=== PATIENT | male | born 1950 | race Caucasian/White ===

== ENCOUNTER → 2017-12-03 12:50 | Outpatient (CLI) | payer MEDICARE, SELFPAY ==
--- NOTE | 2017-12-03 12:55 | ECHOD_ITS ---
Reason For Study: Murmur Procedure This was a 2D Doppler, Color Flow transthoracic echocardiogram. Exam performed in department. Left Ventricle Normal size and thickness. The estimated ejection fraction is 60 %. No regional wall motion abnormalities noted. Right Ventricle Mildly dilated right ventricle. Normal systolic function. Atria The left atrium is severely enlarged. Normal right atrium. Normal atrial septum. Probable patent foramen ovale. Probable left to right doppler flow across septum. Mitral Valve Mild diffuse mitral valve thickening. Equivocal mitral valve prolapse. Mild (1+) mitral valve insufficiency. Tricuspid Valve Normal tricuspid valve. Trivial tricuspid valve insufficiency. Right ventricular systolic pressure estimated to be 29 mmHg. Aortic Valve Trisinus/trileaflet aortic valve. Mild diffuse aortic valve thickening. There is no aortic stenosis. Pulmonic Valve Normal pulmonic valve. Great Vessels Normal aortic root. Normal arch. Normal inferior vena cava. Inferior vena cava collapse with sniff. Pericardium/Pleural No pericardial effusion. MMode/2D Measurements & Calculations LVIDd: 4.7 cm IVSd: 0.91 cm Ao root diam: 3.7 cm LVIDs: 3.3 cm LVPWd: 0.88 cm RVDd: 4.0 cm FS: 29.3 % LAV(MOD-bp): 117.1 ml EDV(MOD-sp4): 77.4 ml SV(MOD-sp4): 43.7 ml LAV(MOD-bp) Indexed: 54.7 ml/m2 ESV(MOD-sp4): 33.7 ml LAV(MOD-sp2): 107.8 ml EF(MOD-sp4): 56.5 % LAV(MOD-sp4): 110.7 ml LA A4 area: 32.0 cm2 RA A4 area: 19.7 cm2 Doppler Measurements & Calculations MV E max alayna: 115.8 cm/sec Ao V2 max: 97.8 cm/sec LV V1 max: 89.1 cm/sec Ao max P.8 mmHg LV V1 max P.2 mmHg Ao V2 mean: 74.5 cm/sec Ao mean P.4 mmHg Ao V2 VTI: 20.7 cm PA V2 max: 80.8 cm/sec TR max alayna: 184.6 cm/sec TR max P.6 mmHg Interpretation Summary The estimated ejection fraction is 60 %. Mildly dilated right ventricle. The left atrium is severely enlarged. Equivocal mitral valve prolapse. Mild (1+) mitral valve insufficiency. Trivial tricuspid valve insufficiency. Right ventricular systolic pressure estimated to be 29 mmHg. Probable patent foramen ovale. Probable left to right doppler flow across septum. Pt appears to be in atrial fibrillation. In comparison to echo report dated 02/10/2014, no appreciable changes noted. Ordering Physician: Will Palm Referring Physician: Sebastien Holt Performed By: Vanesa Mabry RDCS, RVT
== END ==
PROVIDERS: Family Provider Family Medicine; PCP Family Medicine; Visit Provider Internal Medicine Cardiovascular Disease
DX: I50.32 Chronic diastolic (congestive) heart failure (principal)
CPT/HCPCS: 93306

== ENCOUNTER → 2017-12-13 10:36 | Outpatient (CLI) | payer MEDICARE, SELFPAY ==
[2017-12-13 12:47] LABS: Anion Gap 10 (5-15); BUN 16 mg/dL (7-18); BUN/Creat Ratio 7.7 RATIO (10-20); Chloride 108 mmol/L (98-107); Cholesterol 199 mg/dL (200); Creatinine, Serum 2.07 mg/dL (0.70-1.30); EST Glomerular Filtration Rate 34 mL/min (>60); Est Glom Filt Rate - Afr Amer 42 mL/min (>60); Glucose 97 mg/dL (74-106); High Density Lipoprotein 33 mg/dL; Potassium 3.9 mmol/L (3.5-5.1); Sodium Level 144 mmol/L (136-145); Thyroid Stim Hormone (TSH) 2.07 uIU/mL (0.358-3.74); Triglycerides 193 mg/dL; Very Low Density Lipoprotein 39 mg/dL (5-40)
[2017-12-14 08:16] LABS: Vitamin D,25 Hydroxy 40.3 ng/mL (29.95-100.01)
== END ==
PROVIDERS: Family Provider Family Medicine; PCP Family Medicine; Visit Provider Family Medicine
DX: Z00.00 Encounter for general adult medical examination without abnormal findings (principal); Z12.5 Encounter for screening for malignant neoplasm of prostate; I48.91 Unspecified atrial fibrillation; I10 Essential (primary) hypertension; N19 Unspecified kidney failure; N40.0 Benign prostatic hyperplasia without lower urinary tract symptoms; D64.9 Anemia, unspecified; Z86.73 Personal history of transient ischemic attack (TIA), and cerebral infarction without residual deficits
CPT/HCPCS: 36415; 80048; 80061; 82306; 84153; 84443; G0103

== ENCOUNTER 2018-01-12 17:41 | Emergency (ER) | payer MEDICARE, SELFPAY ==
[2018-01-12 17:42] VITALS: BP 125/83; PULSE 80; RESP 18; TEMP 36.1; O2SAT 97; BMI 32.5
[2018-01-12 19:51] LABS: Absolute Lymphocyte Count 1.09 X10^3/ul (0.83-4.51); Absolute Neutrophil Count 4.2 X10^3/uL (2.0-7.7); Basophil# 0.02 X10^3/uL; Basophil% 0.3 % (0-1); Eosinophils% 1.7 % (0-5); Hematocrit 44.1 % (40-54); Hemoglobin 14.7 g/dl (13.0-16.5); Lymphocyte # 1.09 X10^3/ul (4.0); Lymphocyte % 18.6 % (19-41); Mean Corp Hgb Conc 33.3 g/gl (32-36); Mean Corpuscular Hgb 31.3 pg (27.0-32.0); Mean Corpuscular Volume 93.8 fL (80-94); Mean Platelet Vol. 11.1 fl (6.2-12.0); Monocyte# 0.45 X10^3/uL; Monocyte% 7.7 % (0-10); Neutrophil % 71.5 % (47-70); Platelet Count 224 K/mm3 (150-450); RBC Distribution Width CV 13.4 % (11.6-14.6); RBC Distribution Width SD 46.1 fl (35.1-43.9); White Blood Count 5.9 K/mm3 (4.4-11.0)
[2018-01-12 19:55] LABS: POSITIVE COUNT NO; POSITIVE DIFFERENTIAL NO; POSITIVE MORPHOLOGY NO
[2018-01-12 20:05] VITALS: BP 159/101; PULSE 78; RESP 19; O2SAT 98
[2018-01-12 20:08] LABS: Anion Gap 9 (5-15); BUN 8 mg/dL (7-18); BUN/Creat Ratio 4.4 RATIO (10-20); Calcium,Total 8.8 mg/dL (8.5-10.1); Chloride 104 mmol/L (98-107); Creatinine, Serum 1.83 mg/dL (0.70-1.30); EST Glomerular Filtration Rate 40 mL/min (>60); Est Glom Filt Rate - Afr Amer 48 mL/min (>60); Estimated Creatinine Clearance 40.24 ml/min; Glucose 111 mg/dL (74-106); Potassium 3.4 mmol/L (3.5-5.1); Sodium Level 139 mmol/L (136-145)
--- NOTE | 2018-01-12 20:46 | ED.VISSUMM ---
- ER Visit Summary Date of Service: 01/12/18 Chief Complaint: Rhinorrhea, congestion, nonproductive cough, dry heaves and vomiting and dyspnea. History of Present Illness: The patient is a 67 M who presents with aforementioned chief complaint that started today. He denies hematemesis, melena hematochezia. He denies fever, chills or night sweats. Denies weight gain or weight loss. He denies any ocular, visual or auditory symptoms. He denies chest pain, palpitations or rapid heart rate, orthopnea or PND. He denies any urologic symptoms. Denies myalgias arthralgias. He denies rash. Complains of fatigue. He denies any swelling or rash. Past medical history of TIA/CVA, CHF, chronic atrial fibrillation on Coumadin, hypertension, hyperkalemia, end-stage renal disease and history of subarachnoid hemorrhage. He also has history of N STEMI per old records and septic shock. Physical Examination: Patient appears in no obvious distress. Vital signs are normal he is afebrile. HEENT exam is unremarkable and mucosa is moist. Lungs are clear to auscultation. Heart is regular without murmur, gallop or rub. Abdomen is soft nontender bowel sounds are present normal. Lower extremity exam reveals no swelling, discoloration, leg vein distention, palpable cords or tenderness on the distribution of deep venous system. There is no edema. Neuro exam is nonfocal. Test Results: EKG revealed A. fib rate of 76 with no ischemic changes. Unchanged from prior. CBC is unremarkable. Basic metabolic panel is remarkable for a potassium of 3.4 and creatinine 1.83. Prior creatinine was 2.03. Two-view chest x-ray reveals chronic changes with no evidence of pneumonia, pneumothorax or heart failure. Emergency Department Course and Treatment: To evaluate patient's symptoms chest x-ray, EKG and blood work was obtained. Differential is bronchitis versus CHF versus atypical cardiac ischemia. In light of his history of end-stage renal disease BMP was obtained to assess BUN and creatinine since he reports vomiting and now dry heaves with poor p.o. intake. Since he does not have black or maroon stool and not vomiting blood PT/INR was not assessed. Treatment Plan: I was informed by nurse that patient still feels nauseous. He was given 10 mg to Compazine. She also informed me that family is concerned that he may have a stroke and should be admitted to the hospital. He also voiced to me concerned because his blood pressure is elevated. His most recent blood pressure is 167/99. He has had fluctuations of his blood pressure. His only symptom is nausea and when he becomes severely nauseous he becomes diaphoretic. It was explained the patient and the family this is not unexpected and would represent a vagal response since he has no other symptoms. Patient would like I be removed and discharged to home. One family member commented that we will not bring him back here. I explained to him if there was any concer and it was unsafe for him to go home I would Disposition: Discharged home with family Impression: 1. Acute viral syndrome 2. Nausea and vomiting 3. Vagal response of vomiting 4. Asymptomatic hypertension 5. History of atrial fibrillation 6. End-stage renal disease 7. History of TIA/CVA 8. History of non-ST elevation [place] This note was generated with Jaunt dictation software. It may contain incorrect words, spelling, and punctuation that were not noted in review of the chart prior to signing ED Disposition - Plan for ED Patient: Disposition: Home or Assisted Living Chief Complaint: General Illness Instructions: ED Viral Syndrome Prescriptions: Prochlorperazine Maleate [Compazine] 10 mg PO Q8H PRN PRN #10 tab PRN Reason: n/v Referrals: Sebastien Holt MD [Primary Care Provider] -
[2018-01-12] MEDS: Ondansetron 4 MG/2 ML Vial IV (21:25)
[2018-01-12 21:28] VITALS: BP 155/86; PULSE 84; RESP 15
[2018-01-12] MEDS: proCHLORPERazine 10 MG/2 ML Vial 5 MG IV (21:58)
[2018-01-12 22:00] VITALS: BP 167/99; PULSE 88; RESP 14; TEMP 36.7; O2SAT 94
[2018-01-12 22:29] VITALS: BP 156/96; PULSE 89; RESP 15; O2SAT 93
== END 2018-01-12 22:30 | disposition home or self-care (01) ==
PROVIDERS: Emergency Provider Emergency Medicine; Family Provider Family Medicine; PCP Family Medicine
DX: B34.9 Viral infection, unspecified (principal); R11.2 Nausea with vomiting, unspecified; R55 Syncope and collapse; I13.2 Hypertensive heart and chronic kidney disease with heart failure and with stage 5 chronic kidney disease, or end stage renal disease; N18.6 End stage renal disease; I50.9 Heart failure, unspecified; I48.2 Chronic atrial fibrillation; I25.2 Old myocardial infarction; E87.5 Hyperkalemia; E78.00 Pure hypercholesterolemia, unspecified; Z86.73 Personal history of transient ischemic attack (TIA), and cerebral infarction without residual deficits; Z86.79 Personal history of other diseases of the circulatory system; Z79.01 Long term (current) use of anticoagulants; Z79.899 Other long term (current) drug therapy
CPT/HCPCS: 71046; 80048; 85025; 93005; 96374; 96375; 99285; A4216; J2405

== ENCOUNTER → 2018-06-19 10:23 | Outpatient (CLI) | payer MEDICARE, SELFPAY ==
[2018-06-19 12:47] LABS: Anion Gap 10 (5-15); BUN 17 mg/dL (7-18); BUN/Creat Ratio 10.1 RATIO (10-20); Calcium,Total 8.6 mg/dL (8.5-10.1); Chloride 109 mmol/L (98-107); Cholesterol 182 mg/dL (200); Creatinine, Serum 1.68 mg/dL (0.70-1.30); EST Glomerular Filtration Rate 44 mL/min (>60); Est Glom Filt Rate - Afr Amer 53 mL/min (>60); Glucose 112 mg/dL (74-106); High Density Lipoprotein 27 mg/dL; Sodium Level 144 mmol/L (136-145); Triglycerides 231 mg/dL; Very Low Density Lipoprotein 46 mg/dL (5-40)
--- OUTSIDE RECORDS SUMMARY | 2018-08-21 07:41 | XMS RPT_ITS ---
:1950 Author Organization OHIP Support Name Relationship Address Phone RHIANNA NELSON Unavailable [address] + [place] [address] R Unavailable Unavailable Unavailable SCHAD, MOODY Unavailable Unavailable + [place] [address] D Unavailable Unavailable Unavailable NELSON RHIANNA Unavailable [address] + [place] [address] SCHAD, MOODY Unavailable Unavailable + [place] [address] NELSON, RHIANNA Unavailable [address] + [place] [address] R Unavailable Unavailable Unavailable SCHAD, MOODY Unavailable Unavailable + [place] [address] NELSON RHIANNA Unavailable [address] + [place] [address] R Unavailable Unavailable Unavailable SCHAD, MOODY Unavailable Unavailable + [place] [address] D Unavailable Unavailable Unavailable NELSON, RHIANNA Unavailable [address] + [place] [address] SCHAD, MOODY Unavailable Unavailable + [place] [address] D Unavailable Unavailable Unavailable NELSON, RHIANNA Unavailable [address] + [place] [address] SCHAD, MOODY Unavailable . + [place] [address] D Unavailable Unavailable Unavailable NELSON, RHIANNA Unavailable [address] + [place] [address] SCHAD, MOODY Unavailable . + [place] [address] Care Team Providers Name Role Phone Sebastien Holt Attending Unavailable Sebastien Holt Primary Care Unavailable Majo Yepez Attending Unavailable Will Palm Attending Unavailable Holt, Sebastien Referring Unavailable Holt, Sebastien Primary Care Unavailable Will Palm Attending Unavailable Will Palm Referring Unavailable Holt, Sebastien Primary Care Unavailable Holt, Sebastien Attending Unavailable Holt, Sebastien Primary Care Unavailable Néstor, Will Attending Unavailable Holt, Sebastien Primary Care Unavailable Nelson, Shravan Attending Unavailable Nelson, Shravan Referring Unavailable PROBLEMS PROBLEMS DATE TYPE CONDITION / CODE ATTENDING STATUS SOURCE 01/15/2018 Unknown Z00.00 - Encounter Sebastien Holt Active [place] for general adult [facility] Hospital examination Repository without abnormal findings / Z00.00(ICD-10) 01/15/2018 Unknown I50.32 - Chronic Néstor Will Active [place] diastolic [facility] (congestive[facility] heart Hospital failure / Repository I50.32(ICD-10) 01/02/2018 Unknown R01.1 - Cardiac Will Palm Active [place] murmur, [facility] unspecified / Hospital R01.1(ICD-10) Repository 11/22/2017 Unknown I10 - Essential Palm Will Active [place] (primary) [facility] hypertension / Hospital I10(ICD-10) Repository 11/22/2017 Unknown E78.5 - Will Palm Active [place] Hyperlipidemia, [facility] unspecified / Hospital E78.5(ICD-10) Repository PROCEDURES PROCEDURES No Procedure Records FoundRESULTS RESULTS BASIC METABOLIC Collected: 06/19/2018 Status: F Source: [place] PROFILE (BMP) 10:27 AM [facility] REPOSITORY TYPE CODE TESTS RESULT OUT OF RANGE REFERENCE UNITS LAB L501.0100 74-106 mg/dL High GLU 112 Result Comment: Fasting Glucose result from 100 to 125 mg/dL suggests IMPAIRED HOMEOSTASIS per A.D.A. criteria. Please note revised GLUCOSE reference range effective 2017. LAB L501.1000 7-18 mg/dL Normal BUN 17 LAB L501.1100 0.70-1.30 mg/dL High CREAT,SERUM 1.68 Result Comment: The validity of the calculated GFR AND GFRAA in patients over 70 years has not been determined. Clinical correlation is essential. LAB L501.1110 >60 mL/min Low EST GFR 44 Result Comment: Non- GFR Calc LAB L501.1115 >60 mL/min Low EST GFR - AA 53 Result Comment: GFR Calc LAB L501.1300 10-20 RATIO Normal BUN/CRE 10.1 LAB L501.2200 8.5-10.1 mg/dL CA Normal 8.6 LAB L501.5300 136-145 mmol/L NA Normal 144 LAB L501.5600 3.5-5.1 mmol/L K Normal 4.0 LAB L501.5900 98-107 mmol/L High CL 109 LAB L501.6100 21.0-32.0 mmol/L Normal CO2 25.0 LAB L501.6200 5-15 Normal GAP 10 Performed By: #### L500.2500, L500.4100 #### [facility] [address] [place], [address] LIPID PROFILE Collected: 06/19/2018 Status: F Source: [place] 10:27 AM [facility] REPOSITORY TYPE CODE TESTS RESULT OUT OF RANGE REFERENCE UNITS LAB L501.4900 200 mg/dL Normal CHOL 182 Result Comment: <200 mg/dL Desirable 200-240 mg/dL Borderline >240 mg/dL High Risk LAB L501.5000 mg/dL High TRIG 231 Result Comment: The drugs N-Acetylcysteine and Metamizole may falsely depress this assay. Serum Triglycerides Reference Interval Normal <150 mg/dL Borderline high 150 - 199 mg/dL High 200 - 499 mg/dL Very High > or = 500 mg/dL LAB L501.6400 mg/dL Low HDL 27 Result Comment: The drugs N-Acetylcysteine and Metamizole may falsely depress this assay. Reference Range HDL <40 mg/dL Low HDL Cholesterol HDL >or= 60 mg/dL High HDL Cholesterol LAB L501.6500 0-130 mg/dL Normal LDL 109 LAB L501.6600 5-40 mg/dL High VLDL 46 Performed By: #### L500.2500, L500.4100 #### [facility] [address] [place], [address] 12 LEAD ELECTROCARDIOGRAM Observed: 01/15/2018 Status: F Source: [place] 2:55 PM [facility] REPOSITORY [facility] Cardiovascular Services [address] [place] [address] 12 Lead EKG 01/12/18 1901 MR#: [id number] Acct: [id number] Name: ZEE NELSON Rep #: [id number] : 1950 67 From: Jd Prado MD Attending Dr: Status: DEP ER Ordering Dr: Shravan Nelson MD Date: 01/12/18 Location: ED Sex: M C Admitted: Test Reason : Blood Pressure : / mmHG Vent. Rate : 076 BPM Atrial Rate : 141 BPM P-R Int : 000 ms QRS Dur : 082 ms QT Int : 388 ms P-R-T Axes : 000 005 042 degrees QTc Int : 436 ms Atrial fibrillation Abnormal ECG Confirmed by JD PRADO MD ([id number]), assistant production editor VIRGINIA LAZCANO ([id number]) on 01/15/2018 2:54:49 PM Referred By: Shravan Nelson Confirmed By:JD PRADO MD 01/15/18 1454 Date Jd Prado MD CC: Sebastien Holt MD; Shravan Nelson MD Signed EMERGENCY DEPARTMENT Observed: 01/12/2018 Status: F Source: [place] SUMMARY 10:12 PM [facility] REPOSITORY [facility] Medical Records Department [address] [place] [address] Emergency Department Summary 01/12/182045 MR#: [id number] Acct: [id number] Name: ZEE NELSON Rep #: [id number] : 1950 67 From: Sharvan Nelson MD PCP: Sebastien Holt MD Status: REG ER - ER Visit Summary Date of Service: 01/12/18 Chief Complaint: Rhinorrhea, congestion, nonproductive cough, dry heaves and vomiting and dyspnea. History of Present Illness: The patient is a 67 M who presents with aforementioned chief complaint that started today. He denies hematemesis, melena hematochezia. He denies fever, chills or night sweats. Denies weight gain or weight loss. He denies any ocular, visual or auditory symptoms. He denies chest pain, palpitations or rapid heart rate, orthopnea or PND. He denies any urologic symptoms. Denies myalgias arthralgias. He denies rash. Complains of fatigue. He denies any swelling or rash. Past medical history of TIA/CVA, CHF, chronic atrial fibrillation on Coumadin, hypertension, hyperkalemia, end-stage renal disease and history of subarachnoid hemorrhage. He also has history of N STEMI per old records and septic shock. Physical Examination: Patient appears in no obvious distress. Vital signs are normal he is afebrile. HEENT exam is unremarkable and mucosa is moist. Lungs are clear to auscultation. Heart is regular without murmur, gallop or rub. Abdomen is soft nontender bowel sounds are present normal. Lower extremity exam reveals no swelling, discoloration, leg vein distention, palpable cords or tenderness on the distribution of deep venous system. There is no edema. Neuro exam is nonfocal. Test Results: EKG revealed A. fib rate of 76 with no ischemic changes. Unchanged from prior. CBC is unremarkable. Basic metabolic panel is remarkable for a potassium of 3.4 and creatinine 1.83. Prior creatinine was 2.03. Two-view chest x-ray reveals chronic changes with no evidence of pneumonia, pneumothorax or heart failure. Emergency Department Course and Treatment: To evaluate patient's symptoms chest x-ray, EKG and blood work was obtained. Differential is bronchitis versus CHF versus atypical cardiac ischemia. In light of his history of end-stage renal disease BMP was obtained to assess BUN and creatinine since he reports vomiting and now dry heaves with poor p.o. intake. Since he does not have black or maroon stool and not vomiting blood PT/INR was not assessed. Treatment Plan: I was informed by nurse that patient still feels nauseous. He was given 10 mg to Compazine. She also informed me that family is concerned that he may have a stroke and should be admitted to the hospital. He also voiced to me concerned because his blood pressure is elevated. His most recent blood pressure is 167/99. He has had fluctuations of his blood pressure. His only symptom is nausea and when he becomes severely nauseous he becomes diaphoretic. It was explained the patient and the family this is not unexpected and would represent a vagal response since he has no other symptoms. Patient would like I be removed and discharged to home. One family member commented that we will not bring him back here. I explained to him if there was any concer and it was unsafe for him to go home I would Disposition: Discharged home with family Impression: 1. Acute viral syndrome 2. Nausea and vomiting 3. Vagal response of vomiting 4. Asymptomatic hypertension 5. History of atrial fibrillation 6. End-stage renal disease 7. History of TIA/CVA 8. History of non-ST elevation OR This note was generated with [employer] dictation software. It may contain incorrect words, spelling, and punctuation that were not noted in review of the chart prior to signing ED Disposition - Plan for ED Patient: Disposition: Home or Assisted Living Chief Complaint: General Illness Instructions: ED Viral Syndrome Prescriptions: Prochlorperazine Maleate [Compazine] 10 mg PO Q8H PRN PRN #10 tab PRN Reason: n/v Referrals: Sebastien Holt MD [Primary Care Provider] - What to do if you have Problems For any increased pain, shortness of breath, bleeding, nausea or vomiting, chest pain, or any unexpected problems, contact your Primary Care Provider. Call [facility] ([phone]) or report to the closest Emergency Room. Call 911 if necessary. 01/12/182211 <Electronically signed by Shravan Nelson MD> Date Shravan Nelson MD Cosigner Signature (If Indicated): Date CC: Sebastien Holt MD CBC W/DIFF, AUTOMATED Collected: 01/12/2018 Status: F Source: [place] 7:42 PM [facility] REPOSITORY TYPE CODE TESTS RESULT OUT OF RANGE REFERENCE UNITS LAB L100.1000 4.4-11.0 K/mm3 Normal WBC 5.9 LAB L100.1200 4.6-6.2 M/mm3 Normal RBC 4.70 LAB L100.1300 13.0-16.5 g/dl Normal HGB 14.7 LAB L100.1400 40-54 % Normal HCT 44.1 LAB L100.1500 80-94 fL Normal MCV 93.8 LAB L100.1600 27.0-32.0 pg Normal MCH 31.3 LAB L100.1700 32-36 g/gl Normal MCHC 33.3 LAB L100.1810 11.6-14.6 % Normal RDW CV 13.4 LAB L100.1820 35.1-43.9 fl High RDW SD 46.1 LAB L100.1900 150-450 K/mm3 Normal PLT 224 LAB L100.2000 6.2-12.0 fl Normal MPV 11.1 LAB L100.2100 47-70 % High NEUT% 71.5 LAB L100.2200 19-41 % Low LY% 18.6 LAB L100.2300 0-10 % Normal MONO% 7.7 LAB L100.2400 0-5 % Normal EO% 1.7 LAB L100.2500 0-1 % Normal BASO% 0.3 LAB L100.2550 0.0-0.9 % Normal IM GRAN % 0.200 Result Comment: IG% - Immature Granulocytes (promyelocytes, myelocytes and metamyelocytes) > 1% indicates that a LEFT SHIFT is Present. LAB L100.2620 2.0-7.7 X10 3/uL Normal Absolute Neut 4.2 LAB L100.2720 0.83-4.51 X10 3/ul Normal Absolute Lymph 1.09 Performed By: #### L100.0100 #### [facility] [address] [place], [address] BASIC METABOLIC Collected: 01/12/2018 Status: F Source: [place] PROFILE ([facility]) 7:42 PM [facility] REPOSITORY TYPE CODE TESTS RESULT OUT OF RANGE REFERENCE UNITS LAB L501.0100 74-106 mg/dL High GLU 111 Result Comment: Fasting Glucose result from 100 to 125 mg/dL suggests IMPAIRED HOMEOSTASIS per A.D.A. criteria. Please note revised GLUCOSE reference range effective 2017. LAB L501.1000 7-18 mg/dL Normal BUN 8 LAB L501.1100 0.70-1.30 mg/dL High CREAT,SERUM 1.83 Result Comment: The validity of the calculated GFR AND GFRAA in patients over 70 years has not been determined. Clinical correlation is essential. LAB L501.1110 >60 mL/min Low EST GFR 40 Result Comment: Non- GFR Calc LAB L501.1115 >60 mL/min Low EST GFR - AA 48 Result Comment: GFR Calc LAB L501.1255 ml/min Normal Estimated CRCL 40.24 LAB L501.1300 10-20 RATIO Low BUN/CRE 4.4 LAB L501.2200 8.5-10 mg/dL Normal .1 CA 8.8 LAB L501.5300 136-14 mmol/L Normal 5 NA 139 LAB L501.5600 3.5-5. mmol/L Low 1 K 3.4 LAB L501.5900 98-107 mmol/L Normal CL 104 LAB L501.6100 21.0-3 mmol/L Normal 2.0 CO2 26.0 LAB L501.6200 5-15 Normal GAP 9 Performed By: #### L500.2500 #### [facility] [address] [place], [address] CHEST PA AND LATERAL Observed: 01/12/2018 Status: F Source: [place] 6:54 PM [facility] REPOSITORY [facility] Imaging Services [address] [place] [address] Chest PA and Lateral MR#: [id number] Acct: [id number] Name: ZEE NELSON Rep #: [id number] : 1950 M 67 From: Silvina Avendano MD PCP: Sebastien Holt MD Status: REG ER Study: Chest PA and Lateral Date of Exam: 01/12/18 Exam# [id number] Ordering Dr: Shravan Nelson MD STUDY: X-RAY CHEST REASON FOR EXAM: Male, 67 years old. Shortness of breath TECHNIQUE: Frontal and lateral views of the chest were obtained. COMPARISON: February 10, 2014 FINDINGS: The lungs are hyperinflated. There are minimal increased markings in both lung bases. There is no demonstrated pleural abnormality. The cardiac silhouette is normal in size. The mediastinum and hilar regions are unremarkable. Normal visualized pulmonary arteries. Normal visualized aortic arch and descending thoracic aorta. There are diffuse degenerative changes of the visualized spine. There are degenerative changes in both shoulders. There is no demonstrated abnormality of the visualized upper abdomen. RAD/Chest PA and Lateral IMPRESSION: No acute cardiopulmonary abnormalities. There is stable COPD. There is minimal bibasilar atelectasis. Electronically Signed: Silvina Avendano MD at 19:19 EDT Tel Direct: [phone], Service support , CC: Sebastien Holt MD; Shravan Nelson MD Administrative Analyst: Signed BASIC METABOLIC Collected: 12/13/2017 Status: F Source: [place] PROFILE ([facility]) 10:37 AM [facility] REPOSITORY TYPE CODE TESTS RESULT OUT OF RANGE REFERENCE UNITS LAB L501.0100 74-106 mg/dL Normal GLU 97 Result Comment: Please note revised GLUCOSE reference range effective 2017. LAB L501.1000 7-18 mg/dL Normal BUN 16 LAB L501.1100 0.70-1.30 mg/dL High CREAT,SERUM 2.07 Result Comment: The validity of the calculated GFR AND GFRAA in patients over 70 years has not been determined. Clinical correlation is essential. LAB L501.1110 >60 mL/min Low EST GFR 34 Result Comment: Non- GFR Calc LAB L501.1115 >60 mL/min Low EST GFR - AA 42 Result Comment: GFR Calc LAB L501.1300 10-20 RATIO Low BUN/CRE 7.7 LAB L501.2200 8.5-10.1 mg/dL Normal CA 9.0 LAB L501.5300 136-145 mmol/L Normal NA 144 LAB L501.5600 3.5-5.1 mmol/L Normal K 3.9 LAB L501.5900 98-107 mmol/L High CL 108 LAB L501.6100 21.0-32.0 mmol/L Normal CO2 26.0 LAB L501.6200 5-15 Normal GAP 10 Performed By: #### L500.2500, L500.4100, L501.9520, L501.9910 #### [facility] [address] [place], [place], [address] LIPID PROFILE Collected: 12/13/2017 Status: F Source: [place] 10:37 AM [facility] REPOSITORY TYPE CODE TESTS RESULT OUT OF RANGE REFERENCE UNITS LAB L501.4900 200 mg/dL Normal CHOL 199 Result Comment: <200 mg/dL Desirable 200-240 mg/dL Borderline >240 mg/dL High Risk LAB L501.5000 mg/dL Normal TRIG 193 Result Comment: The drugs N-Acetylcysteine and Metamizole may falsely depress this assay. Serum Triglycerides Reference Interval Normal <150 mg/dL Borderline high 150 - 199 mg/dL High 200 - 499 mg/dL Very High > or = 500 mg/dL LAB L501.6400 mg/dL Low HDL 33 Result Comment: The drugs N-Acetylcysteine and Metamizole may falsely depress this assay. Reference Range HDL <40 mg/dL Low HDL Cholesterol HDL >or= 60 mg/dL High HDL Cholesterol LAB L501.6500 0-130 mg/dL Normal LDL 127 LAB L501.6600 5-40 mg/dL Normal VLDL 39 Performed By: #### L500.2500, L500.4100, L501.9520, L501.9910 #### [facility] [address] [place], [place], [address] THYROID STIM HORMONE Collected: 12/13/2017 Status: F Source: [place] (TSH) 10:37 AM [facility] REPOSITORY TYPE CODE TESTS RESULT OUT OF RANGE REFERENCE UNITS LAB L501.9520 0.358-3.74 uIU/mL Normal TSH 2.07 Performed By: #### L500.2500, L500.4100, L501.9520, L501.9910 #### [facility] [address] [place], [address] PSA,TOTAL - ANNUAL Collected: 12/13/2017 Status: F Source: [place] SCREEN 10:37 AM [facility] REPOSITORY TYPE CODE TESTS RESULT OUT OF RANGE REFERENCE UNITS LAB L501.9910 0.00-4.00 ng/mL Normal PSA,TOT 0.50 SCREEN Result Comment: This test was performed using the TPSA assay method for the [employer] system. Values obtained with different assay methods cannot be used interchangably. When changing PSA assays in the course of monitoring a patient, additional sequential testing should be carried out to confirm baseline values. Performed By: #### L500.2500, L500.4100, L501.9520, L501.9910 #### [facility] [address] [place], [address] VITAMIN D,25 HYDROXY Collected: 12/13/2017 Status: F Source: [place] 10:37 AM [facility] REPOSITORY TYPE CODE TESTS RESULT OUT OF RANGE REFERENCE UNITS LAB L506.1000 29.95-100.01 ng/mL Normal Vitamin D 40.3 25-OH Result Comment: Vitamin D 25(OH) Status Range Deficiency <20 ng/mL (50nmol/L) Insuffciency 20 - 30 ng/mL (50 - 75 nmol/L) Sufficiency 30 - 100 ng/mL (75 - 250 nmol/L) Toxicity >100 ng/mL (>250 nmol/L) Performed By: #### L506.1000 #### [facility] [address] [place], [address] ECHOCARDIOGRAM COMPLETE Observed: 12/10/2017 Status: F Source: [place] 4:58 PM [facility] REPOSITORY [facility] Cardiovascular Services [address] [facility] [place] [address] Echo Complete 12/03/17 1303 MR#: [id number] Acct: [id number] Name: ZEE NELSON Rep #: [id number] : 1950 67 From: Will Palm MD Attending Dr: Will Palm MD Status: [facility] Ordering Dr: Will Palm MD Date: 12/03/17 Location: [facility] Sex: M C Admitted: Reason For Study: Murmur Procedure This was a 2D Doppler, Color Flow transthoracic echocardiogram. Exam performed in department. Left Ventricle Normal size and thickness. The estimated ejection fraction is 60 %. No regional wall motion abnormalities noted. Right Ventricle Mildly dilated right ventricle. Normal systolic function. Atria The left atrium is severely enlarged. Normal right atrium. Normal atrial septum. Probable patent foramen ovale. Probable left to right doppler flow across septum. Mitral Valve Mild diffuse mitral valve thickening. Equivocal mitral valve prolapse. Mild (1+) mitral valve insufficiency. Tricuspid Valve Normal tricuspid valve. Trivial tricuspid valve insufficiency. Right ventricular systolic pressure estimated to be 29 mmHg. Aortic Valve Trisinus/trileaflet aortic valve. Mild diffuse aortic valve thickening. There is no aortic stenosis. Pulmonic Valve Normal pulmonic valve. Great Vessels Normal aortic root. Normal arch. Normal inferior vena cava. Inferior vena cava collapse with sniff. Pericardium/Pleural No pericardial effusion. MMode/2D Measurements AND Calculations LVIDd: 4.7 cm IVSd: 0.91 cm Ao root diam: 3.7 cm LVIDs: 3.3 cm LVPWd: 0.88 cm RVDd: 4.0 cm FS: 29.3 % LAV(MOD-bp): 117.1 ml EDV(MOD-sp4): 77.4 ml SV(MOD-sp4): 43.7 ml LAV(MOD-bp) Indexed: 54.7 ml/m2 ESV(MOD-sp4): 33.7 ml LAV(MOD-sp2): 107.8 ml EF(MOD-sp4): 56.5 % LAV(MOD-sp4): 110.7 ml LA A4 area: 32.0 cm2 RA A4 area: 19.7 cm2 Doppler Measurements AND Calculations MV E max alayna: 115.8 cm/sec Ao V2 max: 97.8 cm/sec LV V1 max: 89.1 cm/sec Ao max P.8 mmHg LV V1 max P.2 mmHg Ao V2 mean: 74.5 cm/sec Ao mean P.4 mmHg Ao V2 VTI: 20.7 cm PA V2 max: 80.8 cm/sec TR max alayna: 184.6 cm/sec TR max P.6 mmHg Interpretation Summary The estimated ejection fraction is 60 %. Mildly dilated right ventricle. The left atrium is severely enlarged. Equivocal mitral valve prolapse. Mild (1+) mitral valve insufficiency. Trivial tricuspid valve insufficiency. Right ventricular systolic pressure estimated to be 29 mmHg. Probable patent foramen ovale. Probable left to right doppler flow across septum. Pt appears to be in atrial fibrillation. In comparison to echo report dated 02/10/2014, no appreciable changes noted. Ordering Physician: Will Palm Referring Physician: Sebastien Holt Performed By: Vanesa Mabry RDCS, RVT 12/10/17 165 Date Will Palm MD CC: Will Palm MD; Sebastien Holt MD Date Dictated: 12/03/17 1303 Date Transcribed: 12/10/171656 Administrative Analyst: Signed CARDIOLOGY VISIT Observed: 11/22/2017 Status: F Source: [place] REPORT 2:04 PM [facility] REPOSITORY [facility] [address] [place], [place] [address]. [address] [place] [address] OFFICE VISIT Date of Service: 11/22/17 MR#: [id number] Acct: [id number] Name: ZEE NELSON Rep #: [id number] : 1950 Provider: Will Palm MD Age/Sex: 67/M Location: [facility] Status: Signed HPI HPI Chief Complaint: Routine f/u Details: referring physician: Dr. Holt Mister Nelson is a very pleasant 67-year-old gentleman, who I originally saw in consultation on 04/22/13. That time he presented to [facility] with what appears to be an acute GI bleed which occurred on February 24, 2013. Patient on chronic Coumadin therapy in the past for chronic atrial fibrillation diagnosed around 12 years ago. In addition he has a history of alcoholic cirrhosis, and used to drink 12-19 beers per day for about 8 years and quit about 7 years ago. He has a history of GI bleeds in the past. At that time his INR was found to be supratherapeutic at 12.0, he received vitamin K. During this time, he developed acute kidney injury which did not respond IV fluids and temporarily required hemodialysis. An acute mental status change and was transferred to the [facility] where a CT scan showed a subarachnoid hemorrhage. He was intubated placed on a ventilator and extubated on March 06, 2013. He had seizure activity which is apparently related to a subarachnoid hemorrhage, rhabdomyolysis and Escherichia coli Bacteremia. March 16, 2013 the patient developed a non-ST elevation myocardial infarction and underwent catheterization at the [facility] which demonstrated nonobstructive coronary artery disease and an LVEF of 50%. Patient recently presented in January 2014 with what appeared to be an embolic stroke. Extensive vascular workup including carotid ultrasound and MRA of the head were negative. However the patient did appear to have an acute lacunar infarct of the left sewell radiata. His Coumadin has been restarted and his INR is therapeutic. Patient denies any chest pain, angina, palpitations, lightheadedness or dizziness. He is taking and tolerating his medicines well. He no longer drinks. He recently underwent a sleep study on 05/25/14 which demonstrated positive sleep study, and CPAP was titrated. His most recent echocardiogram was 04/21/13 which showed normal LV function with an EF of 65%, and normal RVSP of 31 mmHg, trivial mitral regurg. From a cardiac standpoint the patient denies any palpitations, chest pain, angina or shortness of breath. He reports that he is intermittently compliant with his CPAP, but no longer drinks. He is compliant with his medications. He states his blood pressure at home runs in the 130s-140s as his daughter is a nurse and takes it periodically. Patient developed myalgias, and switch from Zocor to gemfibrozil in May 2016. His repeat lipid profile as of 06/15/17 showed HDL of 35 and an LDL of 124. He denies any anginal symptoms. In our office today his blood pressure is 156/80 pulse is 74 and irregular. His physical exam is as below. His lipids as of06/15/16 showed triglycerides of 449, and LDL and HDL were unable to be calculated. Repeat lipids as of 12/13/16 show an LDL of 167, and an HDL of 37. Triglycerides are much better 190. .An echocardiogram dated 02/10/14 showed an EF of 55%. Repeat echo is pending. Intake Vital Signs11/22/17 Height 5 ft 9 in 11/22/17 Weight: 217 lb 11/22/17 Body Mass Index (BMI) 32.0 11/22/17 Blood Pressure 156/80 11/22/17 Respiratory Rate 18 11/22/17 Pulse Rate 72 Intake Visit Reasons: 6 M FU Allergies atorvastatin Allergy (Verified 11/22/17 13:37) Unknown metoclopramide HCl [From Reglan] Allergy (Verified 11/22/17 13:37) Other promethazine Adverse Reaction (Verified 11/22/17 13:37) Unknown Medications Gabapentin [Neurontin] 300 mg PO DAILY 02/10/14 [History Confirmed 11/22/17] Magnesium Oxide [Mag-Ox 400] 400 mg PO BID 02/10/14 [History Confirmed 11/22/17] Metoprolol Tartrate [Lopressor (beta krishna)] 50 mg PO BID 02/10/14 [History Confirmed 11/22/17] Multivit-Min/FA/Lycopene/Lut [Centrum Silver Tablet] 1 ea PO DAILY 02/10/14 [History Confirmed 11/22/17] Pantoprazole Sodium [Protonix] 40 mg PO DAILY 02/10/14 [History Confirmed 11/22/17] Tamsulosin HCl [Flomax] 0.4 mg PO DAILY 02/10/14 [History Confirmed 11/22/17] Zinc Sulfate (50mg elemental) [Zinc Sulfate] 220 mg PO DAILY 02/10/14 [History Confirmed 11/22/17] levETIRAcetam tablet [Keppra tablet] 500 mg PO DAILY 02/10/14 [History Confirmed 11/22/17] traMADol [Ultram] 50 mg PO Q4H PRN PRN 02/10/14 [History Confirmed 11/22/17] lisinopril 20 mg tablet 20 mg PO QDAY 11/22/17 [History Confirmed 11/22/17] warfarin 5 mg tablet PO 30 Days 11/22/17 [History Confirmed 11/22/17] [facility] Medical History Subarachnoid hemorrhage (Resolved 2012) Chronic diastolic (congestive) heart failure (Chronic) Hyperlipidemia (Chronic) Hypertension (Chronic) History of GI bleed (Chronic) History of CVA (cerebrovascular accident) (Chronic) Persistent atrial fibrillation (Chronic) NSTEMI (non-ST elevated myocardial infarction) (Chronic 2012) CKD (chronic kidney disease) (Chronic) Alcoholic cirrhosis of liver (Chronic) Atherosclerosis of coronary artery of [place] heart without angina pectoris (Chronic) DVT (deep venous thrombosis) (Resolved) Surgical History H/O inguinal hernia repair (Chronic) History of left heart catheterization (Chronic 03/16/13) Family History Father CAD (coronary artery disease) Social History Smoking Status: Never smoker alcohol intake: former ROS Const Const: Negative for fatigue, weakness, difficulty sleeping, frequent falls, headache(s) or excessive sweating Eyes Eyes: Negative for loss of peripheral vision, transient loss of vision, blurry vision or double vision ENT ENT: Negative for headache(s), dizziness, Nosebleed/epistaxis or balance problems Cardio Chest Pain: No Edema: None Muscle aches with walking: None Resp Respiratory: Negative for SOB with activity, SOB at rest, SOB orthopnea\SOB lying down or paroxysmal nocturnal dyspnea GI GI: Negative nausea or heartburn : Negative for hematuria Musc Musc: Negative for muscle aches/ myalgia, muscle weakness, joint pain or balance problems Skin Skin: Negative non-healing lesions, unusual bruising or rash Neuro Neuro: Negative for weakness, frequent falls, blurry vision, headache(s), dizziness, lightheadedness, orthostatic symptoms or double vision Gera Hematologic/Lymphatic: Negative for easy bruising Endo Endo: Negative for fatigue, excessive sweating or increased thirst/drinking Psych Psych: Negative for anxiety or depression Allergy Allergy/Immunology: Negative for hives, Negative for rash Cardiology Exam Const Appearance: cooperative, healthy appearing and no acute distress Nutritional Appearance: well nourished Orientation: alert, oriented x3 and oriented to person Head Head: normal to inspection, atraumatic and normocephalic Nose: external nose normal Face and Sinus: face symmetric Mouth: oral mucosae normal Eyes General: appearance normal, both eyes and all related structures Eyelids: eyelids normal Conjunctivae: conjunctivae normal Pupils: PERRL and normal by confrontation EOM: EOM intact bilaterally Neck Neck: normal visual inspection and full ROM Carotids: normal carotid upstroke Chest Chest inspection: normal inspection of the chest Auscultation: Bilateral: Clear to Auscultation Cardio Palpation: normal PMI Rate: regular rate Rhythm: regular rhythm Heart sounds: S1 normal and S2 normal GI GI: normal to inspection, no hepatosplenomegaly and bowel sounds present Neuro General: alert, oriented x3, awake, CN's II-XI intact bilaterally and moves all extremities Skin Skin: no rashes or lesions noted Extremities Pulses: Normal: Right Femoral Pulse, Left Femoral Pulse, Right Dorsalis Pedis Pulse, Left Dorsalis Pedis Pulse, Right Posterior Tibial Pulse, Left Posterior Tibial Pulse, Right Radial Pulse, Left Radial Pulse Lower Extremity Edema: None: Bilateral Psych Psychological: normal affect Assessment AND Plan 1. Hypertension I10 Plan 1. Hypertension: The patient's blood pressure is elevated today, and he reports it ranges at home in the 130s-140s. This is the second time his blood pressure has been elevated in our office. The patient is confused as to whether he takes Toprol 20 or lisinopril 10 mg at home but does report that he is compliant nonetheless. He is also compliant with his metoprolol. I recommend the patient go home and check and see what dosage of lisinopril he is on. If he is only on 20 mg we will increase it to 40, and if he is only on 10 mg we will increase it to 20 with a repeat blood pressure check in 2 weeks time. In addition we will obtain a repeat 2D echo with Doppler to document his LV function in light of his hypertension as well as track the progress of his mitral regurgitation and pulmonary pressures. 2. Hyperlipidemia E78.5 Plan 2. Hyperlipidemia: His LDL and HDL cholesterol are fairly well-controlled. Continue dietary therapy. 3. Persistent atrial fibrillation: Continue Coumadin therapy. Heart rate is well controlled. 4. Return office in 6 months. This note was generated using a voice recognition system and there may be incorrect words, spelling or punctuation that were not noted when reviewing the office note prior to saving. Plan Detail Other Orders Orders: Follow Up +6M (Néstor) Coding Level of Care Code Off vis,est,level 3 Diagnoses Hypertension I10 Hyperlipidemia E78.5 Coding Level of Care Code Off vis,est,level 3 Diagnoses Hypertension I10 Hyperlipidemia E78.5 11/22/17 1404 <Electronically signed by Will Palm MD> Date Will Palm MD Cosigner Signature: Date (if applicable) CC: Sebastien Holt MD ALLERGIES ALLERGIES DATE TYPE / NAME / CODE REACTION SEVERITY SOURCE CODE 01/12/2018 Drug metoclopramide Other Unknown [place] Allergy/41 HCl/[id number](RXNOR [facility] [id number]) Repository 01/12/2018 Drug promethazine/[id number] Unknown Unknown [place] Allergy/41 459(RXNORM) [facility] [id number]([facility]) Repository 01/12/2018 Drug atorvastatin/[id number] Unknown Unknown [place] Allergy/41 321(RXNORM) [facility] [id number]([facility]) Repository ENCOUNTERS ENCOUNTERS ADMIT/DISCHARGE ACCOUNT ADMITTING ENCOUNTER LOCATION SOURCE NUMBER CLASS 06/19/2018 [id number] Ambulatory [place] 0 [facility] ing:MFPLAB Repository 01/12/2018/ [id number] Emergency [place] 8 1 [facility] ing:ED Repository 12/13/2017 [id number] Ambulatory [place] 3 [facility] ing:MFPLAB Repository 12/03/2017 [id number] Ambulatory [place] 5 [facility] ing:[facility] Repository 12/03/2017 [id number] Ambulatory BMSBuilding:W [place] 4 [facility] Repository 11/22/2017/ [id number] Ambulatory BMSBuilding:B [place] 8 3 [facility] Repository 11/22/2017 [id number] Ambulatory BMSBuilding:B [place] 9 [facility] Repository PAYERS PAYERS ENCOUNTER GUARANTOR PAYER SUBSCRIBER SOURCE 06/19/2018 [place] [id number] Insurance:[facility] PART A [facility] [id number] Number: Repository [id number]: 330 [id number] [phone] () Date:2018-06-19 06/19/2018 Secondary NOT GIVENUNK [place] Insurance:SELF PAY [facility] Number: Effective Repository Date:2018-06-19 01/12/2018 ZEE [place] [id number] Insurance:MEDICARE [facility]: [facility] PART A [facility] [id number] [place] Number: Repository [address]Tru: 330 [id number] [phone] () Date:2018-01-12 01/12/2018 Secondary NOT GIVENUNK [place] Insurance:SELF PAY [facility] Number: Effective Repository Date:2018-01-12 12/13/2017 ZEE Ford [id number] Insurance:MEDICARE MCCULLOUGHDOB: Community [place] PART A [facility] [id number] [place] Number: Repository [id number]: 330 [id number] [phone] () Date:2017-12-13 12/13/2017 Secondary NOT GIVENUNK [place] Insurance:SELF PAY [facility] Number: Effective Repository Date:2017-12-13 12/03/2017 ZEE Grey Primary ZEE [place] [id number] Insurance:MEDICARE MCCULLOUGHDOB: Community [place] PART A [facility] [id number] [place] Number: Repository [id number]: 330 [id number] [phone] () Date:2017-11-23 12/03/2017 Secondary NOT GIVENUNK [place] Insurance:SELF PAY [facility] Number: Effective Repository Date:2017-11-23 12/03/2017 ZEE Grey Primary ZEE [place] [id number] Insurance:MEDICARE MCCULLOUGHDOB: Community [place] PART A [id number] [place] Number[facility] Repository [id number]: 330 [id number] [phone] () Date:2017-11-23 12/03/2017 Secondary NOT GIVENUNK [place] Insurance:SELF PAY [facility] Number: Effective Repository Date:2017-12-03 11/22/2017 ZEE Grey Primary ZEE Ford [id number] Insurance:MEDICARE MCCULLOUGHDOB: Community [place] PART A [id number] [place] Number: Repository [id number]: 330 [id number] [phone] () Date:2017-04-30 11/22/2017 Secondary NOT GIVENUNK [place] Insurance:SELF PAY [facility] Number: Effective Repository Date:2017-11-22 11/22/2017 ZEE Grey Primary ZEE Ford [id number] Insurance:MEDICARE MCCULLOUGHDOB: Community [place] PART A [id number] [place] Number: Repository [id number]: 330 [id number] [phone] () Date:2017-11-22 11/22/2017 Secondary ZEE Ford Insurance:ANTHEMPolic MCCULLOUGHDOB: Community y Number: [id number] [id number] Repository Date:[id number], [place] [address]GN: 11/22/2017 Tertiary NOT GIVENUNK [place] Insurance:SELF PAY [facility] Number: Effective Repository Date:2017-11-22
== END ==
PROVIDERS: Family Provider Family Medicine; PCP Family Medicine; Visit Provider Family Medicine
DX: I10 Essential (primary) hypertension (principal)
CPT/HCPCS: 36415; 80048; 80061

== ENCOUNTER → 2018-08-09 12:13 | Outpatient (CLI) | payer MEDICARE, SELFPAY ==
[2018-07-12 12:57] VITALS: BMI 32.5
[2018-08-09 14:13] LABS: Absolute Lymphocyte Count 0.93 X10^3/ul (0.83-4.51); Absolute Neutrophil Count 7.2 X10^3/uL (2.0-7.7); Basophil# 0.04 X10^3/uL; Basophil% 0.4 % (0-1); Eosinophil# 0.27 X10^3/uL; Hemoglobin 8.9 g/dl (13.0-16.5); Lymphocyte # 0.93 X10^3/ul (4.0); Lymphocyte % 10.2 % (19-41); Mean Corp Hgb Conc 31.8 g/gl (32-36); Mean Corpuscular Hgb 28.5 pg (27.0-32.0); Mean Corpuscular Volume 89.7 fL (80-94); Mean Platelet Vol. 11.7 fl (6.2-12.0); Monocyte# 0.64 X10^3/uL; Neutrophil # 7.19 X10^3/uL (2.7-7.7); Neutrophil % 79.2 % (47-70); Platelet Count 269 K/mm3 (150-450); RBC Distribution Width CV 14.1 % (11.6-14.6); RBC Distribution Width SD 46.3 fl (35.1-43.9); Red Blood Count 3.12 M/mm3 (4.6-6.2); White Blood Count 9.1 K/mm3 (4.4-11.0)
[2018-08-09 14:18] LABS: POSITIVE COUNT NO; POSITIVE DIFFERENTIAL NO; POSITIVE MORPHOLOGY NO; Prothrombin Time (Protime)PT. 48.1 SECONDS (11.7-14.9)
[2018-08-09 14:20] LABS: International Normalized Ratio 5.1
[2018-08-09 14:50] LABS: ALB/GLOB Ratio 1.1 RATIO (0.9-2.4); AST(SGOT) 41 U/L (15-37); Alanine Aminotransfer ALT/SGPT 32 U/L (16-61); Albumin, Serum 3.2 g/dL (3.2-5.0); Alkaline Phosphatase 385 U/L (45-117); Anion Gap 10 (5-15); BUN 30 mg/dL (7-18); BUN/Creat Ratio 16.8 RATIO (10-20); Calcium,Total 8.2 mg/dL (8.5-10.1); Chloride 106 mmol/L (98-107); Creatinine, Serum 1.79 mg/dL (0.70-1.30); EST Glomerular Filtration Rate 41 mL/min (>60); Est Glom Filt Rate - Afr Amer 49 mL/min (>60); Globulin 2.9 g/dL (2.2-4.2); Glucose 89 mg/dL (74-106); Potassium 3.4 mmol/L (3.5-5.1); Protein, Total 6.1 g/dL (6.4-8.2); Sodium Level 142 mmol/L (136-145)
== END ==
PROVIDERS: Family Provider Family Medicine; PCP Family Medicine; Referring Provider Family Medicine; Visit Provider Family Medicine
DX: R19.7 Diarrhea, unspecified (principal)
CPT/HCPCS: 36415; 80053; 82274; 85025; 85610; 87493; 87506

== ENCOUNTER → 2018-08-12 11:54 | Outpatient (CLI) | payer MEDICARE, SELFPAY ==
[2018-07-12 12:57] VITALS: BMI 32.5
[2018-08-12 14:01] LABS: Absolute Lymphocyte Count 0.96 X10^3/ul (0.83-4.51); Absolute Neutrophil Count 7.2 X10^3/uL (2.0-7.7); Basophil# 0.04 X10^3/uL; Basophil% 0.4 % (0-1); Eosinophils% 5.3 % (0-5); Hematocrit 30.9 % (40-54); Hemoglobin 9.3 g/dl (13.0-16.5); Lymphocyte # 0.96 X10^3/ul (4.0); Lymphocyte % 10.1 % (19-41); Mean Corp Hgb Conc 30.1 g/gl (32-36); Mean Corpuscular Hgb 27.9 pg (27.0-32.0); Mean Corpuscular Volume 92.8 fL (80-94); Mean Platelet Vol. 12.4 fl (6.2-12.0); Monocyte# 0.77 X10^3/uL; Monocyte% 8.1 % (0-10); Neutrophil # 7.19 X10^3/uL (2.7-7.7); Neutrophil % 75.9 % (47-70); Platelet Count 290 K/mm3 (150-450); RBC Distribution Width CV 14.1 % (11.6-14.6); RBC Distribution Width SD 46.1 fl (35.1-43.9); Red Blood Count 3.33 M/mm3 (4.6-6.2); White Blood Count 9.5 K/mm3 (4.4-11.0)
[2018-08-12 14:03] LABS: Prothrombin Time (Protime)PT. 37.9 SECONDS (11.7-14.9)
[2018-08-12 14:05] LABS: POSITIVE COUNT NO; POSITIVE DIFFERENTIAL NO; POSITIVE MORPHOLOGY NO
[2018-08-12 14:09] LABS: International Normalized Ratio 3.8
== END ==
PROVIDERS: Family Provider Family Medicine; PCP Family Medicine; Visit Provider Family Medicine
DX: Z86.73 Personal history of transient ischemic attack (TIA), and cerebral infarction without residual deficits (principal)
CPT/HCPCS: 36415; 85025; 85610

== ENCOUNTER → 2018-08-13 14:43 | Outpatient (CLI) | payer MEDICARE, SELFPAY ==
[2018-07-12 12:57] VITALS: BMI 32.5
[2018-08-13 17:45] LABS: Absolute Lymphocyte Count 1.07 X10^3/ul (0.83-4.51); Absolute Neutrophil Count 7.6 X10^3/uL (2.0-7.7); Basophil# 0.02 X10^3/uL; Basophil% 0.2 % (0-1); Eosinophil# 0.42 X10^3/uL; Eosinophils% 4.2 % (0-5); Hematocrit 28.4 % (40-54); Hemoglobin 8.6 g/dl (13.0-16.5); Lymphocyte # 1.07 X10^3/ul (4.0); Lymphocyte % 10.8 % (19-41); Mean Corp Hgb Conc 30.3 g/gl (32-36); Mean Corpuscular Volume 92.5 fL (80-94); Mean Platelet Vol. 12.2 fl (6.2-12.0); Monocyte% 8.1 % (0-10); Neutrophil # 7.56 X10^3/uL (2.7-7.7); Neutrophil % 76.4 % (47-70); Platelet Count 314 K/mm3 (150-450); RBC Distribution Width CV 14.1 % (11.6-14.6); RBC Distribution Width SD 45.7 fl (35.1-43.9); Red Blood Count 3.07 M/mm3 (4.6-6.2); White Blood Count 9.9 K/mm3 (4.4-11.0)
[2018-08-13 17:46] LABS: International Normalized Ratio 2.8; Prothrombin Time (Protime)PT. 29.7 SECONDS (11.7-14.9)
[2018-08-13 17:59] LABS: POSITIVE COUNT NO; POSITIVE DIFFERENTIAL NO; POSITIVE MORPHOLOGY NO
== END ==
PROVIDERS: Family Provider Family Medicine; PCP Family Medicine; Referring Provider Family Medicine; Visit Provider Family Medicine
DX: Z86.73 Personal history of transient ischemic attack (TIA), and cerebral infarction without residual deficits (principal)
CPT/HCPCS: 36415; 85025; 85610

== ENCOUNTER 2018-09-04 12:08 | Emergency (ER) | payer MEDICARE, SELFPAY ==
[2018-07-12 12:57] VITALS: BMI 32.5
[2018-09-04 12:09] VITALS: BP 117/71; PULSE 142; RESP 18; TEMP 36.5; O2SAT 95; BMI 28.8
--- NOTE | 2018-09-04 12:16 | EKG12_ITS ---
Test Reason : ABD PAIN Blood Pressure : / mmHG Vent. Rate : 111 BPM Atrial Rate : 104 BPM P-R Int : 000 ms QRS Dur : 080 ms QT Int : 338 ms P-R-T Axes : 000 -08 037 degrees QTc Int : 459 ms Atrial fibrillation with rapid ventricular response Abnormal ECG Confirmed by JOHAN BAZAN, THEE ([id number]), technical writer and editor VIRGINIA LAZCANO ([id number]) on 09/09/2018 4:28:56 PM Referred By: LOW/KELLY Confirmed By:THEE PRADO MD
[2018-09-04 12:20] VITALS: BP 107/70; PULSE 125; RESP 28; O2SAT 100
--- NOTE | 2018-09-04 12:26 | ED.VIS.GEN ---
History of Present Illness Chief Complaint: Abd Pain Detail of Chief Complaint: Patient has a constellation of symptoms that are related to the GI system Informant: Patient, Significant Other Onset: Weeks - 3-4 weeks Timing: - - Patient reports intermittent nausea and vomiting anytime he attempts to eat or drink anything. He reports 4-5 mushy bowel movements a day. They are not black, maroon and there is no blood noted. Patient also reports abdominal pain left of his umbilicus. There is no history of diverticulosis or diverticulitis. Quality: Pain Location: Abdomen left of umbilicus Current Severity: Mild Maximum Severity: Moderate Worsened by: Attempt to eat anything Relieved by: Nothing Associated Symptoms: Vomiting, diarrhea and central abdominal pain Narrative: Patient is an elderly male with history of H fibrillation on Coumadin who presents with nausea, vomiting diarrhea for the past 3 weeks. He reports a 20 pound weight loss. He reports that his trousers are looser on him. He denies fever, chills or night sweats. He denies ocular, visual or auditory symptoms. He denies cardiac or respiratory symptoms. He does have history of hernia. He denies dysuria, frequency, urgency or hematuria. He denies decreased urine output. He denies any skin lesions. He denies myalgias arthralgias or joint swelling. There is no history of autoimmune disorder. Prior similar symptoms: Yes Recent Illness/Hospitalization: No - Past Medical History (1) CKD (chronic kidney disease) Status: Chronic (2) Chronic diastolic (congestive) heart failure Status: Chronic (3) History of CVA (cerebrovascular accident) Status: Chronic (4) History of GI bleed Status: Chronic (5) Hyperlipidemia Status: Chronic (6) Hypertension Status: Chronic (7) NSTEMI (non-ST elevated myocardial infarction) Status: Chronic (8) Persistent atrial fibrillation Status: Chronic (9) Subarachnoid hemorrhage Status: Resolved Past Medical History - Allergies and Home Meds Allergies/Adverse Reactions: Allergies atorvastatin Allergy (Verified 07/12/18 12:58) Unknown metoclopramide HCl [From Reglan] Allergy (Verified 07/12/18 12:58) Other promethazine Adverse Reaction (Verified 07/12/18 12:58) Unknown Primary Care Physician: Sebastien Holt MD [Primary Care Provider] - Prior records reviewed: Yes Surgical History: herniorrhaphy, - - IVC filter placement. Lives: With Family Smoking Status: Never smoker Alcohol: None - Family History Maternal Family History: Family History (Last Reviewed 07/12/18 @ 13:01 by Obdulia Robles) Father CAD (coronary artery disease) Family History: Reports: No pertinent history Paternal Family History: Family History (Last Reviewed 07/12/18 @ 13:01 by Obdulia Robles) Father CAD (coronary artery disease) Family History: Reports: No pertinent history Review of Systems General: Denies: Chills, Fever, Sweats Eyes: Denies: Visual changes - bilaterally, Diplopia ENT: Denies: Rhinorrhea, Sore throat Cardiovascular: Denies: Chest pain, Palpitations Respiratory: Denies: Dyspnea, Cough, Dyspnea on exertion Gastrointestinal: Reports: Abdominal pain, Nausea, Vomiting, Diarrhea. Denies: Melena, Hematochezia Genitourinary: Denies: Dysuria, Hematuria, Frequency Musculoskeletal: Denies: Myalgias, Arthralgias, Neck pain, Back pain, Swelling - 1 p.o. p.o. I would you can give her some mag here and potassium here and then call in prescription, Extremity Pain Skin: Denies: Rash, Wounds Neurological: Denies: Headache, Weakness, Numbness Psych: Reports: Depression Hematologic: Reports: Easy bruising Allergy: Denies: Uticaria Physical Exam Vital Signs/Narrative: Vital Signs Temp Pulse Resp BP Pulse Ox 09/04/18 12:20 125 H 28 H 107/70 100 09/04/18 12:09 97.7 F L 142 H 18 117/71 95 General: Well nourished, Well developed, No Acute Distress Head: Normocephalic, Atraumatic Eyes: Perrl, EOMI, Pale conjunctiva. Negative for: Scleral icterus ENT: Moist mucous membranes, No rhinorrhea Neck: Supple, Nontender, No lymphadenopathy, No JVD Cardiovascular: No murmurs, Irregular, Tachycardia Respiratory: No distress, CTA bilaterally, Chest nontender Abdomen: Soft, Nondistended, Tender, Hypoactive bowel sounds, Mass, Umbilical hernia, Hernia reducible. Negative for: Normal bowel sounds, No masses, Guarding, Rebound tenderness, Hyperactive bowel sounds, Hepatomegaly, Splenomegaly, Pulsatile mass, Psoas sign, Obturator sign, Rovsig's sign Back: Nontender, Normal Inspection Extremities: Nontender, No edema. Negative for: Edema, Calf Tenderness Skin: No rash, Pallor. Negative for: Cyanosis, Jaundice Neurological: Alert, Oriented x3, Cranial nerves II-XII grossly intact, Normal Strength, Normal Sensation Psychological: Normal affect Diagnostic/Tx/Re-eval 09/04/18 14:14 Abdomen/Pelvis WITH Contrast [CT] Stat Laboratory Results 09/04/18 09/04/18 09/04/18 12:40 12:40 12:40 WBC 11.9 H RBC 3.20 L Hgb 8.3 L Hct 26.4 L MCV 82.5 MCH 25.9 L MCHC 31.4 L RDW 15.9 H RDW Differential 47.7 H Plt Count 388 MPV 10.3 Immature Gran % (Auto) 0.200 Neut % (Auto) 83.2 H Lymph % (Auto) 6.1 L [place] % (Auto) 6.6 Eos % (Auto) 3.7 Baso % (Auto) 0.2 Absolute Neuts (auto) 9.9 H Absolute Lymphs (auto) 0.72 L Total Counted Not Reportable PT Cancelled INR Cancelled Sodium 135 L Potassium 4.8 Chloride 98 Carbon Dioxide 25.0 Anion Gap 12 BUN 27 H Creatinine 1.60 H Estim Creat Clear Calc 45.41 Est GFR (MDRD) Af Amer 56 L Est GFR (MDRD) Non-Af 46 L BUN/Creatinine Ratio 16.9 Glucose 89 Lactic Acid Calcium 8.5 09/04/18 09/04/18 12:40 13:27 WBC RBC Hgb Hct MCV MCH MCHC RDW RDW Differential Plt Count MPV Immature Gran % (Auto) Neut % (Auto) Lymph % (Auto) Grant % (Auto) Eos % (Auto) Baso % (Auto) Absolute Neuts (auto) Absolute Lymphs (auto) Total Counted PT 33.7 H INR 3.3 Sodium Potassium Chloride Carbon Dioxide Anion Gap BUN Creatinine Estim Creat Clear Calc Est GFR (MDRD) Af Amer Est GFR (MDRD) Non-Af BUN/Creatinine Ratio Glucose Lactic Acid 2.9 H Calcium - EKG Initial EKG Interpretation: Atrial Fibrillation - Ventricular rate is 111. QRS duration is normal. QT interval is normal. Other than A. fib with RVR no abnormality noted. - Medical Decision Making With history of kidney failure with diarrhea and 20 pound weight loss will have an IV placed and administer IV fluids. Will obtain PT/INR since he is on Coumadin. CBC to assess white count and H&H. Basic metabolic panel to assess electrolytes specifically potassium, renal function and CO2. With regards to the umbilical hernia, it is reducible. This is the cause of his pain. Patient is anemic with a hemoglobin of 8.3. White count is slightly elevated 11.9 thousand. Creatinine is elevated 1.65. Lactate was elevated at 2.9. In light of abdominal pain with leukocytosis umbilical hernia CT of the abdomen with p.o. and IV contrast was ordered. He did receive a fluid bolus, 3 cc/kg. INR is therapeutic. Review of prior records indicates patient's hemoglobin varies from 8.6-9.3. Creatinine is in line with prior results. CT of the abdomen was ordered. Patient is not gone for his CAT scan yet. Patient's care will be transferred to Dr. Brandi Lopez to make disposition once CAT scan results are available. ED Disposition - Plan for ED Patient: Disposition: Acute Care Hospital [facility] Diagnosis: Abdominal pain, vomiting, and diarrhea, Dehydration, Umbilical hernia, Lactic acidosis, End stage renal disease due to benign hypertension, History of CVA (cerebrovascular accident), Chronic diastolic (congestive) heart failure, Hyperlipidemia Referrals: Sebastien Holt MD [Primary Care Provider] -
[2018-09-04] MEDS: 0.9% Normal Saline 1,000 ML 1000 ML IV (12:49)
[2018-09-04 12:59] LABS: Anion Gap 12 (5-15); BUN 27 mg/dL (7-18); BUN/Creat Ratio 16.9 RATIO (10-20); Calcium,Total 8.5 mg/dL (8.5-10.1); Chloride 98 mmol/L (98-107); EST Glomerular Filtration Rate 46 mL/min (>60); Est Glom Filt Rate - Afr Amer 56 mL/min (>60); Estimated Creatinine Clearance 45.41 ml/min; Glucose 89 mg/dL (74-106); Potassium 4.8 mmol/L (3.5-5.1); Sodium Level 135 mmol/L (136-145)
[2018-09-04 13:00] LABS: Absolute Lymphocyte Count 0.72 X10^3/ul (0.83-4.51); Absolute Neutrophil Count 9.9 X10^3/uL (2.0-7.7); Basophil# 0.02 X10^3/uL; Basophil% 0.2 % (0-1); Eosinophil# 0.44 X10^3/uL; Eosinophils% 3.7 % (0-5); Hematocrit 26.4 % (40-54); Hemoglobin 8.3 g/dl (13.0-16.5); Lymphocyte # 0.72 X10^3/ul (4.0); Lymphocyte % 6.1 % (19-41); Mean Corp Hgb Conc 31.4 g/gl (32-36); Mean Corpuscular Hgb 25.9 pg (27.0-32.0); Mean Corpuscular Volume 82.5 fL (80-94); Mean Platelet Vol. 10.3 fl (6.2-12.0); Monocyte# 0.78 X10^3/uL; Monocyte% 6.6 % (0-10); Neutrophil # 9.91 X10^3/uL (2.7-7.7); Neutrophil % 83.2 % (47-70); POSITIVE COUNT NO; POSITIVE DIFFERENTIAL NO; POSITIVE MORPHOLOGY NO; Platelet Count 388 K/mm3 (150-450); RBC Distribution Width CV 15.9 % (11.6-14.6); RBC Distribution Width SD 47.7 fl (35.1-43.9); White Blood Count 11.9 K/mm3 (4.4-11.0)
[2018-09-04 13:11] VITALS: BP 132/79; PULSE 105; RESP 20; TEMP 36.6; O2SAT 98
[2018-09-04 13:18] LABS: Lactic Acid 2.9 mmol/L (0.4-2.0)
--- NOTE | 2018-09-04 13:22 | ED.RN ---
lactic 2.[address] lab. dr butler aware
[2018-09-04 13:42] LABS: International Normalized Ratio 3.3; Prothrombin Time (Protime)PT. 33.7 SECONDS (11.7-14.9)
--- NOTE | 2018-09-04 14:14 | CT_ITS ---
We are attempting to reach Shravan Nelson MD to discuss findings. An addendum with communication details will be sent when the communication is complete. STUDY: CT ABDOMEN AND PELVIS WITH CONTRAST REASON FOR EXAM: Male, 68 years old. Umbilical hernia, weight loss. History of inguinal hernia repair. RADIATION DOSAGE (If Supplied By Facility): CTDIvol = ( 16.53 ) mGy, DLP = ( 1213.53 ) mGycm TECHNIQUE: Transaxial images were obtained from the dome of the diaphragm to the symphysis pubis without oral contrast. 100CC IV/Oral Isovue 300 was administered. Sagittal and coronal images were reconstructed. Individualized dose optimization techniques were used for this CT. COMPARISON: None. FINDINGS: There are small bilateral pleural effusions. There are multiple pulmonary nodules concerning for metastatic disease. There are innumerable low-attenuation lesions throughout the liver, suspicious for metastatic disease. The largest lesion, in the posterior segment, measures 3.6 x 3 cm. Hepatic and portal veins are patent. The gallbladder is unremarkable. The spleen and pancreas are unremarkable. The adrenal glands are normal. The right kidney is atrophic. Left kidney is unremarkable. No stones or hydronephrosis. The aorta is normal in caliber. There is an infrarenal IVC filter. There is mild ascites. There is mild gastrohepatic and peripancreatic adenopathy. There is mild retroperitoneal adenopathy. There is no free air or organized collection. No bowel obstruction or inflammatory change. Diverticulosis is noted, with no evidence of acute diverticulitis. Normal appendix. Urinary bladder is unremarkable. There is a small, fat-containing midline incisional hernia. There is a small umbilical hernia containing fat and ascitic fluid. There are moderate degenerative changes of the lumbar spine. No destructive bone lesions are demonstrated. CT/Abdomen/Pelvis WITH Contrast IMPRESSION: 1. Multiple pulmonary and hepatic metastases. 2. Mild upper abdominal and retroperitoneal adenopathy. 3. Small pleural effusions. 4. Mild ascites. 5. Small, fat-containing midline abdominal hernias. 6. Additional chronic findings are detailed above. Electronically Signed: Cassi Barkley MD at 16:49 EDT Tel , Service support ,
[2018-09-04 15:00] VITALS: BP 117/73; PULSE 120; RESP 22; O2SAT 98
--- NOTE | 2018-09-04 16:30 | ED.RN ---
PT HEART RATE 136, MD AWARE, MORE FLUIDS ORDERED.
[2018-09-04] MEDS: 0.9% Normal Saline 1,000 ML 999 ML IV (16:31)
[2018-09-04 16:43] LABS: Reflex Lactate? Y
[2018-09-04 17:07] VITALS: BMI 28.8
--- NOTE | 2018-09-04 17:45 | ED.VISSUMM ---
ED Disposition - Plan for ED Patient: Disposition: Acute Care Hospital [facility] Diagnosis: Abdominal pain, vomiting, and diarrhea, Dehydration, Umbilical hernia, Lactic acidosis, End stage renal disease due to benign hypertension, History of CVA (cerebrovascular accident), Chronic diastolic (congestive) heart failure, Hyperlipidemia Instructions: ED Tumor [facility] Prescriptions: Phytonadione [Mephyton, Vitamin K1] 10 mg PO X1 1 Days #2 tab Referrals: Sebastien Holt MD [Primary Care Provider] - Juan Jose Paulson MD [STAFF PHYSICIAN] - (at 0730 tomorrow morning at his office) Additional Instructions: Increase metoprolol to 100 mg twice a day You have an appointment with Dr. Paulson tomorrow morning at 0730 hours. Please discontinue your Coumadin and then take 10 mg more tomorrow morning.
--- NOTE | 2018-09-04 17:48 | ED.DCSUM_ITS ---
ED Disposition - Plan for ED Patient: Disposition: Acute Care Hospital [facility] Diagnosis: Abdominal pain, vomiting, and diarrhea, Dehydration, Umbilical hernia, Lactic acidosis, End stage renal disease due to benign hypertension, History of CVA (cerebrovascular accident), Chronic diastolic (congestive) heart failure, Hyperlipidemia Instructions: ED Tumor [facility] Prescriptions: Phytonadione [Mephyton, Vitamin K1] 10 mg PO X1 1 Days #2 tab Referrals: Sebastien Holt MD [Primary Care Provider] - Juan Jose Paulson MD [STAFF PHYSICIAN] - (at 0730 tomorrow morning at his office) Additional Instructions: Increase metoprolol to 100 mg twice a day You have an appointment with Dr. Paulson tomorrow morning at 0730 hours. Please discontinue your Coumadin and then take 10 mg more tomorrow morning.
[2018-09-04 17:51] LABS: Lactic Acid 2.4 mmol/L (0.4-2.0)
--- NOTE | 2018-09-04 17:51 | PCM.HOSP.N ---
Hospitalist Note Patient was seen and examined today in the emergency room at [facility], I was asked to see the patient at the request of the emergency room physician-patient came to the ER with complaints of intermittent nausea and vomiting over the last several weeks and weight loss along with malaise. Workup in the emergency room consisted in part of the CT of the abdomen and pelvis which showed multiple hepatic lesions along with lymphadenopathy in the peritoneum, in addition, there was noted to be pulmonary nodules present and a possible neoplasm in the stomach. The emergency room physician advised that the patient be admitted to the hospital for further workup, I went in and talked with the patient at length, patient's daughters were in the room also and I talked with them. Further, I also talked with Dr. Brooks Paulson who stated that if possible the patient can be worked up as an outpatient. After presenting these options to the patient and his family, patient wanted to be discharged home to follow-up as an outpatient with Dr. Paulson, an appointment was set up to see Dr. Paulson tomorrow morning at 730 which the patient states that he was going to keep. Patient's heart rate was between 120 and 130-chronic atrial fibrillation-I advised the patient to increase his metoprolol to 100 mg twice a day. Finally, patient was given 10 mg of vitamin K orally here and was given a prescription by the emergency room physician for another 10 mg of vitamin K to take tomorrow. Patient was adamant that he wanted to be discharged home, again he stated he would follow-up as an outpatient with Dr. Paulson. I discussed this with the emergency room physician Dr. Lopez and also talked with the patient's primary care physician Dr. Holt concerning his medical care.
--- NOTE | 2018-09-04 17:53 | ED.RN ---
lactic acid 2.[address] lab[address] dr narayan aware
[2018-09-04] MEDS: Phytonadione (Vit K) 10 MG/ML Ampul PO (18:00)
[2018-09-04 18:14] VITALS: BP 109/78; PULSE 129; RESP 22; O2SAT 97
== END 2018-09-04 18:14 | disposition short-term general hospital (02) ==
PROVIDERS: Emergency Provider Emergency Medicine; Family Provider Family Medicine; PCP Family Medicine
DX: R10.9 Unspecified abdominal pain (principal); R11.2 Nausea with vomiting, unspecified; R19.7 Diarrhea, unspecified; E86.0 Dehydration; K42.9 Umbilical hernia without obstruction or gangrene; E87.2 Acidosis; I13.2 Hypertensive heart and chronic kidney disease with heart failure and with stage 5 chronic kidney disease, or end stage renal disease; N18.6 End stage renal disease; I50.32 Chronic diastolic (congestive) heart failure; E78.5 Hyperlipidemia, unspecified; I25.2 Old myocardial infarction; I48.1 Persistent atrial fibrillation; Z79.01 Long term (current) use of anticoagulants; Z79.899 Other long term (current) drug therapy; Z86.73 Personal history of transient ischemic attack (TIA), and cerebral infarction without residual deficits
CPT/HCPCS: 74177; 80048; 83605; 85025; 85610; 93005; 96360; 96361; 99285; J7030; J7050; Q9967

== ENCOUNTER → 2018-09-05 | Outpatient (CLI) | payer MEDICARE, SELFPAY ==
[2018-09-05 07:40] VITALS: BMI 28.8
[2018-09-05 08:39] LABS: International Normalized Ratio 1.8; Prothrombin Time (Protime)PT. 21.1 SECONDS (11.7-14.9)
== END | disposition home or self-care (01) ==
LOC: PAVLAB 08:06
PROVIDERS: Family Provider Family Medicine; PCP Family Medicine; Visit Provider Surgery
DX: I60.9 Nontraumatic subarachnoid hemorrhage, unspecified (principal)
CPT/HCPCS: 36415; 85610

== ENCOUNTER 2018-09-06 10:01 | Day surgery (SDC) | payer MEDICARE, SELFPAY ==
[2018-09-05 07:40] VITALS: BMI 28.8
[2018-09-06] VITALS (8 sets, daily range): BP systolic 99–126; BP diastolic 64–82; PULSE 114–140; RESP 16–28; TEMP 36.7–37.4; O2SAT 97–100; BMI 29.5
--- NOTE | 2018-09-06 | GASB_PTH ---
PATIENT: ZEE BARAJAS LOC: EN U#:[id number] AGE/SX: 68/M ROOM: RE09/06/[address]: Dr. Juan Jose Paulson MD : 1950 BED: DIS: 09/06/2018 SPEC #: [id number] RECD: 09/06/18 13:59 STATUS: MARIJA HEBERT #: [id number] BEKAH: 09/06/18 00:[address]: Juan Jose Paulson DEPT: SURGICAL PATHOLOGY RECD BY: Seth Reynoso ENTERED: 09/06/18 14:00 SP TYPE: Gastric Bx OTHR DR: Dr. 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 See comment. SAMIA:leo 09/09/18 COMMENT Molecular studies on the tumor can be performed if clinically indicated. Please notify the laboratory if they are needed. Case has been reviewed in consultation with Dr. Pruett who concurs with the above diagnosis. IDC:AM MICROSCOPIC DESCRIPTION Slides are reviewed. GROSS DESCRIPTION Received in fixative is one container labeled with the patient's name and designated biopsy mass EG junction. The specimen consists of multiple irregular fragments of light valles soft tissue that in aggregate measure 1 x 1 x 0.1 cm. The specimen is totally submitted in one cassette. / SJ:leo 09/06/18 TC:0 CPT: 02923
[2018-09-06 11:15] LABS: Prothrombin Time Fingerstick 15.3 SEC (11.9-14.4)
--- NOTE | 2018-09-06 12:00 | OP.ENDO_ITS ---
09/06/2018 Sebastien Holt MD [address] [id number] Re : Upper GI endoscopy procedure for Chetan NixParekh Dear Dr. Holt This procedure was performed on Thursday, September 06, 2018. My impressions and recommendations are as follows: Impressions : - Partially obstructing, malignant esophageal tumor was found at the gastroesophageal junction and in the cardia. Biopsied. - Multiple gastric polyps. - Retained gastric fluid. - Normal examined duodenum. Recommendations : - Discharge patient to home. - Resume previous diet. - Continue present medications. - Refer to an oncologist in 3 days. - Telephone my office for pathology results in 3 days. My findings are described in the full procedure note, which is enclosed. If I can be of further assistance, please feel free to contact me at Doctor phone number(s): Work: . Sincerely, Juan Jose Paulson MD 09/06/2018 11:59:40 AM This report has been signed electronically.
== END 2018-09-06 13:25 | disposition home or self-care (01) ==
LOC: EN 10:03 → AC 12:50
PROVIDERS: Family Provider Family Medicine; PCP Family Medicine; Referring Provider Surgery; Visit Provider Surgery
PROC: 0DJ08ZZ Inspection of Upper Intestinal Tract, Via Natural or Artificial Opening Endoscopic (ICD-10-PCS; CPT 43235; principal; 2018-09-06 10:55)
DX: C16.0 Malignant neoplasm of cardia (principal); C78.7 Secondary malignant neoplasm of liver and intrahepatic bile duct; C78.00 Secondary malignant neoplasm of unspecified lung; K31.7 Polyp of stomach and duodenum; R11.2 Nausea with vomiting, unspecified; I13.0 Hypertensive heart and chronic kidney disease with heart failure and stage 1 through stage 4 chronic kidney disease, or unspecified chronic kidney disease; N18.9 Chronic kidney disease, unspecified; I50.32 Chronic diastolic (congestive) heart failure; E78.5 Hyperlipidemia, unspecified; I25.2 Old myocardial infarction; K21.9 Gastro-esophageal reflux disease without esophagitis; I48.1 Persistent atrial fibrillation; K70.30 Alcoholic cirrhosis of liver without ascites; F10.21 Alcohol dependence, in remission; G40.909 Epilepsy, unspecified, not intractable, without status epilepticus; Z79.01 Long term (current) use of anticoagulants; Z79.899 Other long term (current) drug therapy; Z86.73 Personal history of transient ischemic attack (TIA), and cerebral infarction without residual deficits
CPT/HCPCS: 43239; 36416; 85610; 88305; J7120; J2405